=== PATIENT | female | born 1965 | race Caucasian/White ===

== ENCOUNTER 2021-05-02 14:11 | Inpatient (IN) | payer OTHER ==
[~2021-05-02] VITALS: Ht 157.5 cm; Wt 97.6 kg
[2021-05-02] MEDS ORDERED: NALOXONE HCL 1 MG/ML 2 ML SYRINGE IVP ONE (15:00)
[2021-05-02] MEDS ORDERED: CefTRIAXone SODIUM 2 GM in DEXTROSE 5%-WATER 50 ML IV ONE (15:00)
[2021-05-02] MEDS ORDERED: SODIUM CHLORIDE 0.9% 2,000 ML IV ONE (15:00)
[2021-05-02 15:10] LABS: ABG BASE EXCESS -12.6 mmol/L (-2.0-3.0); ABG CARBOXYHEMOGLOBIN 0.8 % (0.0-1.5); ABG HCO3 16.3 mmol/L (22.0-26.0); ABG METHEMOGLOBIN 0.1 % (0.0-1.5); ABG OXYGEN CONTENT 16.2 mL/dL (15.0-23.0); ABG OXYGEN SATURATION 94.9 % (95.0-98.0); ABG PH 7.419 (7.35-7.450); ABG TOTAL HEMOGLOBIN 12.2 G/dL (12.0-18.0); PO2, ARTERIAL BG 82.7 mmHg (66.0-74.0); SOURCE, BLOOD GAS ARTERIAL; TEMPERATURE, FAHRENHEIT, BG 99.1 FAHREN (96.0-98.6)
[2021-05-02 15:12] LABS: ABG PCO2 19 mmHg (35-45); O2 DEVICE,BLOOD GAS NC (ROOM AIR); SITE, BLOOD GAS RT FEMORAL
[2021-05-02 15:13] LABS: BASOPHILS % (AUTO) 0.2 % (0.0-2.0); EOSINOPHILS % (AUTO) 0 % (1.0-6.0); HEMATOCRIT 35.6 % (36-46); HEMOGLOBIN 11.6 g/dL (12.0-16.0); LYMPHOCYTES # (AUTO) 0.6 K/uL (1.0-4.8); MEAN CORPUSCULAR HEMOGLOBIN 29.3 pg (26.0-34.0); MEAN CORPUSCULAR HGB CONC 32.7 G/dL (31.0-37.0); MEAN CORPUSCULAR VOLUME 90 fL (80-100); MONOCYTES # (AUTO) 0.5 K/uL (0.1-1.0); MONOCYTES % (AUTO) 8.1 % (2.0-9.0); NEUTROPHILS # (AUTO) 5.3 K/uL (1.8-7.7); NEUTROPHILS % (AUTO) 82.7 % (40.0-70.0); RED BLOOD CELL COUNT(AUTO) 3.97 MIL/uL (4.00-5.20); RED CELL DISTRIBUTION WIDTH 21.4 % (11.5-14.5)
[2021-05-02 15:23] LABS: ANION GAP 16 mmol/L (8-16); CALCIUM, TOTAL 8.2 mg/dL (8.8-10.5); CARBON DIOXIDE 15 mmol/L (22-29); CHLORIDE 112 mmol/L (98-107); CREATININE 1.12 mg/dL (0.60-1.30); GLOMERULAR FILTR. RATE CALC 42 mL/min (>60); GLUCOSE,RANDOM 126 mg/dL (70-110); POTASSIUM 3.9 mmol/L (3.5-5.1); SODIUM SERUM 143 mmol/L (136-145); UREA NITROGEN, BLOOD 23 mg/dL (7-18)
[2021-05-02 15:43] LABS: B-TYPE NATRIURETIC PEPTIDE 221 pg/mL (0-100)
[2021-05-02 15:46] LABS: D-DIMER 4.4 mg/L FEU (0.00-0.50); INR 1.3 (0.9-1.1); PROTHROMBIN TIME 13.4 SEC (9.4-11.6)
[2021-05-02 15:49] LABS: ACETAMINOPHEN < 2 mcg/mL (10-30); ALANINE AMINOTRANSFERASE 48 U/L (12-78); ALBUMIN 2.4 g/dL (3.4-5.0); ALKALINE PHOSPHATASE 140 U/L (46-116); ASPARTATE AMINOTRANSFERASE 99 U/L (15-37); BILIRUBIN,TOTAL 3.5 mg/dL (0.1-1.0); CREATINE KINASE, TOTAL ONLY 619 U/L (26-192); LACTATE DEHYDROGENASE 329 U/L (81-234); LIPASE 160 U/L (73-393); TOTAL PROTEIN, SERUM 7.3 g/dL (6.4-8.2)
[2021-05-02 15:50] LABS: ACETONE,BLOOD NEGATIVE (NEGATIVE)
[2021-05-02] MEDS ORDERED: PANTOPRAZOLE SODIUM 40 MG/VIAL IVP ONE (16:00)
[2021-05-02] MEDS ORDERED: MIDAZOLAM HCL 2 MG/2 ML VIAL IVP ONE ×3 (16:00→23:15)
[2021-05-02 16:02] LABS: LACTIC ACID 9.6 mmol/L (0.4-2.0)
[2021-05-02] MEDS ORDERED: IOHEXOL 350 MG/ML 100 ML VIAL ONE (16:06)
[2021-05-02] MEDS ORDERED: SODIUM CHLORIDE 0.9% 100 ML ONE (16:06)
[2021-05-02 16:09] LABS: PLATELET COUNT (AUTO) 29 K/uL (150-450)
[2021-05-02 16:14] LABS: COVID AG,FIA SOURCE NASOPHARYNGEAL
[2021-05-02] MEDS ORDERED: LACTULOSE 20 GM/30 ML SOLUTION UDCUP NG ONE (16:15)
[2021-05-02] MEDS ORDERED: PANTOPRAZOLE SODIUM 80 MG in SODIUM CHLORIDE 0.9% 100 ML IV SCH (16:30)
[2021-05-02] MEDS ORDERED: IOHEXOL 350 MG/ML 75 ML VIAL ONE (16:31)
[2021-05-02] MEDS ORDERED: SODIUM CHLORIDE 0.9% 1,000 ML IV ONE ×2 (17:15→20:30)
[2021-05-02] MEDS ORDERED: ONDANSETRON HCL 4 MG/2 ML VIAL IVP PRN (17:15)
[2021-05-02 17:39] LABS: GLUCOSE, URINE (UA) NEGATIVE (NEGATIVE); KETONES,URINE 15 mg/dL (NEGATIVE); LEUKOCYTE ESTERASE ,URINE SMALL (NEGATIVE); NITRATE,URINE POSITIVE (NEGATIVE); PH,URINE 6.5 (5.0-8.0); PROTEIN,URINE SEE CONFIRM (NEGATIVE)
[2021-05-02 17:43] LABS: APPEARANCE,URINE CLEAR (CLEAR); BILIRUBIN,URINE PRELIM. POSITIVE (NEGATIVE); OCCULT BLOOD,URINE MODERATE (NEGATIVE)
[2021-05-02 17:44] LABS: AMPHET/METH SCREEN,URINE NEGATIVE (NEGATIVE); BACTERIA,URINE Few /HPF (None Seen); BARBITURATE SCREEN, URINE NEGATIVE (NEGATIVE); BENZODIAZEPINES SCREEN,URINE NEGATIVE (NEGATIVE); CANNABINOID SCREEN,URINE NEGATIVE (NEGATIVE); COCAINE SCREEN,URINE POSITIVE (NEGATIVE); METHADONE SCREEN, URINE NEGATIVE (NEGATIVE); OPIATE SCREEN,URINE POSITIVE (NEGATIVE); SULFOSALICYLIC ACID,URINE 2+ (Negative)
[2021-05-02 17:45] LABS: PHENCYCLIDINE SCREEN,URINE NEGATIVE (NEGATIVE); SQUAMOUS EPITHELIAL CELL,UR Moderate /LPF (None Seen)
[2021-05-02] MEDS ORDERED: RIFAXIMIN 550 MG TABLET NG ONE (21:00)
[2021-05-02] MEDS ORDERED: LACTULOSE 200 GM/300 ML RECTAL SOLUTION PR SCH (21:00)
[2021-05-02] MEDS ORDERED: OCTREOTIDE ACETATE 500 MCG in DEXTROSE 5%-WATER 97.5 ML IV SCH (21:00)
[2021-05-02] MEDS ORDERED: LORazepam 2 MG/ML VIAL ONE (21:10)
[2021-05-02] MEDS: OCTREOTIDE ACETATE 500 MCG in DEXTROSE 5%-WATER 97.5 ML IV SCH (21:10)
[2021-05-02] MEDS ORDERED: LORazepam 2 MG/ML VIAL IVP ONE (21:15)
[2021-05-02 21:43] LABS: BASOPHILS % (AUTO) 0.3 % (0.0-2.0); EOSINOPHILS % (AUTO) 0.1 % (1.0-6.0); HEMOGLOBIN 9.8 g/dL (12.0-16.0); LYMPHOCYTES # (AUTO) 0.6 K/uL (1.0-4.8); LYMPHOCYTES % (AUTO) 9.9 % (22.0-44.0); MEAN CORPUSCULAR HEMOGLOBIN 29.3 pg (26.0-34.0); MEAN CORPUSCULAR HGB CONC 32.7 G/dL (31.0-37.0); MEAN CORPUSCULAR VOLUME 90 fL (80-100); MONOCYTES # (AUTO) 0.3 K/uL (0.1-1.0); MONOCYTES % (AUTO) 5.6 % (2.0-9.0); NEUTROPHILS # (AUTO) 5.1 K/uL (1.8-7.7); NEUTROPHILS % (AUTO) 84.1 % (40.0-70.0); PLATELET COUNT (AUTO) 29 K/uL (150-450); RED BLOOD CELL COUNT(AUTO) 3.34 MIL/uL (4.00-5.20)
[2021-05-02] MEDS ORDERED: FentaNYL CIT 1000MCG/0.9% NACL 100 ML IV PRN (22:30)
[2021-05-02 22:31] LABS: ABG BASE EXCESS -13.3 mmol/L (-2.0-3.0); ABG CARBOXYHEMOGLOBIN 0.6 % (0.0-1.5); ABG HCO3 14.5 mmol/L (22.0-26.0); ABG METHEMOGLOBIN 0.3 % (0.0-1.5); ABG OXYGEN CONTENT 15.3 mL/dL (15.0-23.0); ABG OXYGEN SATURATION 96.1 % (95.0-98.0); ABG OXYHEMOGLOBIN 95.2 % (94.0-100.0); ABG PCO2 43 mmHg (35-45); ABG TOTAL HEMOGLOBIN 11.3 G/dL (12.0-18.0); PO2, ARTERIAL BG 111.6 mmHg (66.0-74.0); SOURCE, BLOOD GAS ARTERIAL; TEMPERATURE, FAHRENHEIT, BG 98.6 FAHREN (96.0-98.6)
[2021-05-02 22:32] LABS: ABG PH 7.169 (7.35-7.450); O2 DEVICE,BLOOD GAS VENTILATOR (ROOM AIR); PEEP,BG 5 cm H2O; SITE, BLOOD GAS RT RADIAL; VT, ABG 450 ml
[2021-05-02] MEDS: MIDAZOLAM HCL 100 MG in SODIUM CHLORIDE 0.9% 180 ML IV PRN (23:54)
[2021-05-03] VITALS (21 sets, daily range): BP systolic 80–137; BP diastolic 39–60
[2021-05-03] MEDS ORDERED: LACTULOSE 20 GM/30 ML SOLUTION UDCUP NG SCH
[2021-05-03] MEDS ORDERED: SODIUM CHLORIDE 0.9% 500 ML IV ONE (00:50)
[2021-05-03] MEDS: PANTOPRAZOLE SODIUM 80 MG in SODIUM CHLORIDE 0.9% 100 ML IV SCH ×2 (02:25→12:42)
[2021-05-03] MEDS ORDERED: SODIUM CHLORIDE 0.9% 250 ML IV ONE ×3 (03:32→15:37)
[2021-05-03] MEDS: OCTREOTIDE ACETATE 500 MCG in DEXTROSE 5%-WATER 97.5 ML IV SCH (07:00)
[2021-05-03 07:54] LABS: BASOPHILS % (AUTO) 0.4 % (0.0-2.0); EOSINOPHILS % (AUTO) 0.3 % (1.0-6.0); HEMATOCRIT 25.7 % (36-46); HEMOGLOBIN 8.4 g/dL (12.0-16.0); LYMPHOCYTES # (AUTO) 0.9 K/uL (1.0-4.8); MEAN CORPUSCULAR HEMOGLOBIN 29.5 pg (26.0-34.0); MEAN CORPUSCULAR HGB CONC 32.8 G/dL (31.0-37.0); MEAN CORPUSCULAR VOLUME 90 fL (80-100); MONOCYTES # (AUTO) 0.3 K/uL (0.1-1.0); MONOCYTES % (AUTO) 7.1 % (2.0-9.0); NEUTROPHILS # (AUTO) 3.1 K/uL (1.8-7.7); NEUTROPHILS % (AUTO) 71.2 % (40.0-70.0); PLATELET COUNT (AUTO) 33 K/uL (150-450); RED BLOOD CELL COUNT(AUTO) 2.86 MIL/uL (4.00-5.20); RED CELL DISTRIBUTION WIDTH 20.4 % (11.5-14.5)
[2021-05-03 08:32] LABS: CREATININE 1.04 mg/dL (0.60-1.30); POTASSIUM 4.2 mmol/L (3.5-5.1)
[2021-05-03] MEDS: PROPOFOL 1000 MG/ISO-OSM 100 ML IV PRN (10:00)
[2021-05-03] MEDS: ETHYL ALCOHOL 62% ANTISEPTIC NASAL INHALANT 0.6 ML AMPUL NASAL SCH ×2 (10:00→22:16)
[2021-05-03] MEDS ORDERED: ROCURONIUM BROMIDE 10 MG/ML 5 ML VIAL ONE ×2 (10:01)
[2021-05-03] MEDS ORDERED: ETOMIDATE 2 MG/ML 10 ML VIAL ONE (10:01)
[2021-05-03] MEDS: MIDAZOLAM HCL 100 MG in SODIUM CHLORIDE 0.9% 180 ML IV PRN ×2 (10:15→10:18)
[2021-05-03] MEDS: LACTULOSE 20 GM/30 ML SOLUTION UDCUP NG SCH ×2 (12:42→16:00)
[2021-05-03] MEDS: FentaNYL CIT 1000MCG/0.9% NACL 100 ML IV PRN ×2 (14:06→22:34)
[2021-05-03] MEDS: CefTRIAXone 1 GM/DEXTROSE 50 ML IV SCH (15:38)
[2021-05-03] MEDS: NOREPINEPHRINE 4 MG/D5%-WATER 250 ML IV PRN (15:53)
[2021-05-03 16:25] LABS: BASOPHILS % (AUTO) 0.3 % (0.0-2.0); HEMATOCRIT 23.4 % (36-46); HEMOGLOBIN 7.7 g/dL (12.0-16.0); LYMPHOCYTES # (AUTO) 1.1 K/uL (1.0-4.8); LYMPHOCYTES % (AUTO) 26.1 % (22.0-44.0); MEAN CORPUSCULAR HEMOGLOBIN 29.5 pg (26.0-34.0); MEAN CORPUSCULAR HGB CONC 32.8 G/dL (31.0-37.0); MEAN CORPUSCULAR VOLUME 90 fL (80-100); MONOCYTES # (AUTO) 0.3 K/uL (0.1-1.0); MONOCYTES % (AUTO) 7.3 % (2.0-9.0); NEUTROPHILS # (AUTO) 2.6 K/uL (1.8-7.7); NEUTROPHILS % (AUTO) 63.3 % (40.0-70.0); PLATELET COUNT (AUTO) 42 K/uL (150-450); RED CELL DISTRIBUTION WIDTH 21.1 % (11.5-14.5)
[2021-05-03] MEDS ORDERED: EPINEPHrine 1:10,000 [1 MG/10 ML] SYRINGE IVP ONE (17:00)
[2021-05-03] MEDS ORDERED: VANCOMYCIN HCL 1.25 GM in DEXTROSE 5%-WATER 250 ML IV ONE (18:00)
[2021-05-03] MEDS ORDERED: VANCOMYCIN HCL 1 GM/D5% WATER 200 ML IV ONE (18:00)
[2021-05-03 19:42] LABS: ABG CARBOXYHEMOGLOBIN 0.5 % (0.0-1.5); ABG METHEMOGLOBIN 0.3 % (0.0-1.5); ABG OXYGEN CONTENT 12.4 mL/dL (15.0-23.0); ABG OXYGEN SATURATION 98.1 % (95.0-98.0); ABG OXYHEMOGLOBIN 97.3 % (94.0-100.0); ABG PCO2 28 mmHg (35-45); ABG PH 7.455 (7.35-7.450); ABG TOTAL HEMOGLOBIN 8.9 G/dL (12.0-18.0); PO2, ARTERIAL BG 110.2 mmHg (84.0-92.0); SOURCE, BLOOD GAS ARTERIAL; TEMPERATURE, FAHRENHEIT, BG 98.6 FAHREN (96.0-98.6)
[2021-05-03 19:43] LABS: O2 DEVICE,BLOOD GAS VENTILATOR (ROOM AIR); PEEP,BG 5 cm H2O; SITE, BLOOD GAS ARTERIAL LINE; VT, ABG 450 ml
[2021-05-04] VITALS (9 sets, daily range): BP systolic 97–138; BP diastolic 42–73
[2021-05-04] MEDS: MIDAZOLAM HCL 100 MG in SODIUM CHLORIDE 0.9% 180 ML IV PRN (00:58)
[2021-05-04] MEDS: LACTULOSE 20 GM/30 ML SOLUTION UDCUP NG SCH ×3 (02:14→16:45)
[2021-05-04 06:36] LABS: CALCIUM, TOTAL 7.5 mg/dL (8.8-10.5); CREATININE 1.42 mg/dL (0.60-1.30); POTASSIUM 3.5 mmol/L (3.5-5.1)
[2021-05-04] MEDS: FentaNYL CIT 1000MCG/0.9% NACL 100 ML IV PRN ×2 (06:51→15:31)
[2021-05-04] MEDS: NOREPINEPHRINE 4 MG/D5%-WATER 250 ML IV PRN (06:53)
[2021-05-04] MEDS ORDERED: VANCOMYCIN HCL 1 GM in DEXTROSE 5%-WATER 250 ML IV SCH (08:00)
[2021-05-04 08:16] LABS: BASOPHILS % (AUTO) 0.4 % (0.0-2.0); HEMATOCRIT 27.2 % (36-46); HEMOGLOBIN 8.9 g/dL (12.0-16.0); LYMPHOCYTES # (AUTO) 2.4 K/uL (1.0-4.8); LYMPHOCYTES % (AUTO) 28.4 % (22.0-44.0); MEAN CORPUSCULAR HGB CONC 32.5 G/dL (31.0-37.0); MEAN CORPUSCULAR VOLUME 92 fL (80-100); MONOCYTES # (AUTO) 0.5 K/uL (0.1-1.0); MONOCYTES % (AUTO) 5.6 % (2.0-9.0); NEUTROPHILS # (AUTO) 5.1 K/uL (1.8-7.7); NEUTROPHILS % (AUTO) 60.6 % (40.0-70.0); PLATELET COUNT (AUTO) 126 K/uL (150-450); RED BLOOD CELL COUNT(AUTO) 2.95 MIL/uL (4.00-5.20); RED CELL DISTRIBUTION WIDTH 21.6 % (11.5-14.5)
[2021-05-04] MEDS: ETHYL ALCOHOL 62% ANTISEPTIC NASAL INHALANT 0.6 ML AMPUL NASAL SCH ×2 (08:55→21:34)
[2021-05-04] MEDS: VANCOMYCIN HCL 750 MG in DEXTROSE 5%-WATER 250 ML IV SCH ×2 (08:55→21:35)
[2021-05-04] MEDS ORDERED: PANTOPRAZOLE SODIUM 40 MG/VIAL IVP SCH (09:00)
[2021-05-04] MEDS: DEXMEDETOMIDINE HCL 400 MCG in SODIUM CHLORIDE 0.9% 96 ML IV PRN (16:46)
[2021-05-04] MEDS: CefTRIAXone 1 GM/DEXTROSE 50 ML IV SCH (17:27)
[2021-05-05] VITALS (9 sets, daily range): BP systolic 91–113; BP diastolic 43–56
[2021-05-05] MEDS: LACTULOSE 20 GM/30 ML SOLUTION UDCUP NG SCH ×4 (00:37→23:35)
[2021-05-05] MEDS: NOREPINEPHRINE 4 MG/D5%-WATER 250 ML IV PRN ×2 (03:08→23:35)
[2021-05-05] MEDS: FentaNYL CIT 1000MCG/0.9% NACL 100 ML IV PRN (04:29)
[2021-05-05 05:22] LABS: CALCIUM, TOTAL 7.6 mg/dL (8.8-10.5); CREATININE 1.34 mg/dL (0.60-1.30); POTASSIUM 3.2 mmol/L (3.5-5.1); VANCOMYCIN,RANDOM 15.1 mcg/mL (25.0-50.0)
[2021-05-05] MEDS: VANCOMYCIN HCL 750 MG in DEXTROSE 5%-WATER 250 ML IV SCH (09:08)
[2021-05-05] MEDS ORDERED: POTASSIUM CHL 10 MEQ/WATER 50 ML IV SCH (09:15)
[2021-05-05] MEDS ORDERED: POTASSIUM CHLORIDE 20 MEQ ER TABLET PO PRN (09:30)
[2021-05-05] MEDS: PANTOPRAZOLE SODIUM 40 MG/VIAL IVP SCH ×2 (09:56→21:08)
[2021-05-05] MEDS: ETHYL ALCOHOL 62% ANTISEPTIC NASAL INHALANT 0.6 ML AMPUL NASAL SCH ×2 (09:56→21:09)
[2021-05-05] MEDS: POTASSIUM CHL 10 MEQ/WATER 50 ML IV PRN ×6 (11:27→17:55)
[2021-05-05] MEDS: DEXMEDETOMIDINE HCL 400 MCG in SODIUM CHLORIDE 0.9% 96 ML IV PRN (12:09)
[2021-05-05] MEDS: CefTRIAXone 1 GM/DEXTROSE 50 ML IV SCH (15:44)
[2021-05-05] MEDS: VANCOMYCIN HCL 1 GM in DEXTROSE 5%-WATER 250 ML IV SCH (19:46)
[2021-05-05] MEDS ORDERED: VANCOMYCIN HCL 1 GM/D5% WATER 200 ML IV SCH (20:00)
[2021-05-06] VITALS (12 sets, daily range): BP systolic 102–122; BP diastolic 44–66
[2021-05-06] MEDS: DEXTROSE 5%-0.45% SODIUM CHL 1,000 ML IV SCH ×2 (04:46→17:09)
[2021-05-06] MEDS: ACETAMINOPHEN 325 MG TABLET PO PRN (04:47)
[2021-05-06 05:00] LABS: BASOPHILS % (AUTO) 0.3 % (0.0-2.0); LYMPHOCYTES # (AUTO) 1.7 K/uL (1.0-4.8); MEAN CORPUSCULAR HEMOGLOBIN 30.1 pg (26.0-34.0); MEAN CORPUSCULAR HGB CONC 32.3 G/dL (31.0-37.0); MEAN CORPUSCULAR VOLUME 93 fL (80-100); MONOCYTES # (AUTO) 0.8 K/uL (0.1-1.0); MONOCYTES % (AUTO) 8.8 % (2.0-9.0); NEUTROPHILS # (AUTO) 5.9 K/uL (1.8-7.7); NEUTROPHILS % (AUTO) 68.9 % (40.0-70.0); PLATELET COUNT (AUTO) 73 K/uL (150-450); RED BLOOD CELL COUNT(AUTO) 2.99 MIL/uL (4.00-5.20); RED CELL DISTRIBUTION WIDTH 21.4 % (11.5-14.5)
[2021-05-06 05:10] LABS: ALBUMIN 1.8 g/dL (3.4-5.0); BILIRUBIN,TOTAL 2.1 mg/dL (0.1-1.0); CALCIUM, TOTAL 7.5 mg/dL (8.8-10.5); CREATININE 1.36 mg/dL (0.60-1.30); POTASSIUM 3.5 mmol/L (3.5-5.1); TOTAL PROTEIN, SERUM 5.7 g/dL (6.4-8.2)
[2021-05-06] MEDS: VANCOMYCIN HCL 1 GM in DEXTROSE 5%-WATER 250 ML IV SCH ×2 (10:56→20:25)
[2021-05-06] MEDS: PANTOPRAZOLE SODIUM 40 MG/VIAL IVP SCH ×2 (10:57→20:25)
[2021-05-06] MEDS: LACTULOSE 20 GM/30 ML SOLUTION UDCUP NG SCH ×3 (10:57→23:43)
[2021-05-06] MEDS: ETHYL ALCOHOL 62% ANTISEPTIC NASAL INHALANT 0.6 ML AMPUL NASAL SCH ×2 (10:58→20:25)
[2021-05-06] MEDS: DEXMEDETOMIDINE HCL 400 MCG in SODIUM CHLORIDE 0.9% 96 ML IV PRN (12:43)
[2021-05-06] MEDS: CefTRIAXone 1 GM/DEXTROSE 50 ML IV SCH (14:47)
[2021-05-06] MEDS: POTASSIUM CHL 10 MEQ/WATER 50 ML IV PRN ×4 (15:32→23:44)
[2021-05-06 21:05] LABS: CALCIUM, TOTAL 7.3 mg/dL (8.8-10.5); CREATININE 1.21 mg/dL (0.60-1.30); POTASSIUM 3.4 mmol/L (3.5-5.1)
[2021-05-07] VITALS (9 sets, daily range): BP systolic 79–162; BP diastolic 38–69
[2021-05-07] MEDS: POTASSIUM CHL 10 MEQ/WATER 50 ML IV PRN (00:50)
[2021-05-07 05:50] LABS: BASOPHILS % (AUTO) 0.4 % (0.0-2.0); EOSINOPHILS % (AUTO) 1.6 % (1.0-6.0); HEMATOCRIT 25.6 % (36-46); HEMOGLOBIN 8.1 g/dL (12.0-16.0); LYMPHOCYTES # (AUTO) 1.2 K/uL (1.0-4.8); LYMPHOCYTES % (AUTO) 33.3 % (22.0-44.0); MEAN CORPUSCULAR HEMOGLOBIN 29.6 pg (26.0-34.0); MEAN CORPUSCULAR HGB CONC 31.5 G/dL (31.0-37.0); MEAN CORPUSCULAR VOLUME 94 fL (80-100); MONOCYTES # (AUTO) 0.4 K/uL (0.1-1.0); MONOCYTES % (AUTO) 11.8 % (2.0-9.0); NEUTROPHILS # (AUTO) 1.9 K/uL (1.8-7.7); NEUTROPHILS % (AUTO) 52.9 % (40.0-70.0); PLATELET COUNT (AUTO) 47 K/uL (150-450); RED BLOOD CELL COUNT(AUTO) 2.73 MIL/uL (4.00-5.20); RED CELL DISTRIBUTION WIDTH 22.4 % (11.5-14.5)
[2021-05-07 06:18] LABS: CALCIUM, TOTAL 7.4 mg/dL (8.8-10.5); CREATININE 1.19 mg/dL (0.60-1.30); PHOSPHORUS 3.2 mg/dL (2.5-4.9); POTASSIUM 3.7 mmol/L (3.5-5.1)
[2021-05-07] MEDS: LACTULOSE 20 GM/30 ML SOLUTION UDCUP NG SCH ×2 (08:00→15:53)
[2021-05-07 09:05] LABS: ABG BASE EXCESS -7.7 mmol/L (-2.0-3.0); ABG CARBOXYHEMOGLOBIN 0.8 % (0.0-1.5); ABG METHEMOGLOBIN 0.3 % (0.0-1.5); ABG OXYGEN SATURATION 98.3 % (95.0-98.0); ABG OXYHEMOGLOBIN 97.2 % (94.0-100.0); ABG PCO2 26 mmHg (35-45); ABG PH 7.427 (7.35-7.450); ABG TOTAL HEMOGLOBIN 8.6 G/dL (12.0-18.0); PO2, ARTERIAL BG 115.4 mmHg (84.0-92.0); SOURCE, BLOOD GAS ARTERIAL
[2021-05-07 09:06] LABS: O2 DEVICE,BLOOD GAS VENTILATOR (ROOM AIR); SITE, BLOOD GAS ARTERIAL LINE; VT, ABG 450 ml
[2021-05-07 09:07] LABS: PEEP,BG 5 cm H2O; SPONTANEOUS VT, BG 455 ml
[2021-05-07] MEDS: DEXTROSE 5%-0.45% SODIUM CHL 1,000 ML IV SCH ×2 (09:30→20:15)
[2021-05-07] MEDS: VANCOMYCIN HCL 1 GM in DEXTROSE 5%-WATER 250 ML IV SCH ×2 (09:31→20:16)
[2021-05-07] MEDS: PANTOPRAZOLE SODIUM 40 MG/VIAL IVP SCH ×2 (09:32→20:17)
[2021-05-07] MEDS: ETHYL ALCOHOL 62% ANTISEPTIC NASAL INHALANT 0.6 ML AMPUL NASAL SCH ×2 (09:32→20:16)
[2021-05-07] MEDS: FentaNYL CIT 1000MCG/0.9% NACL 100 ML IV PRN ×2 (09:33→22:32)
[2021-05-07] MEDS: CefTRIAXone 1 GM/DEXTROSE 50 ML IV SCH (15:52)
[2021-05-07] MEDS: NOREPINEPHRINE 4 MG/D5%-WATER 250 ML IV PRN (16:31)
[2021-05-07] MEDS ORDERED: MAGNESIUM SULFATE 2 GM, MVI, ADULT NO.1 WITH VIT K 10 ML, THIAMINE 100 MG, FOLIC ACID 1... IV ONE ×5 (17:30)
[2021-05-08] VITALS (12 sets, daily range): BP systolic 89–122; BP diastolic 47–66
[2021-05-08] MEDS: DEXMEDETOMIDINE HCL 400 MCG in SODIUM CHLORIDE 0.9% 96 ML IV PRN (05:16)
[2021-05-08 06:23] LABS: CALCIUM, TOTAL 7.3 mg/dL (8.8-10.5); CREATININE 0.97 mg/dL (0.60-1.30); POTASSIUM 3.1 mmol/L (3.5-5.1)
[2021-05-08] MEDS: FentaNYL CIT 1000MCG/0.9% NACL 100 ML IV PRN ×2 (06:44→15:55)
[2021-05-08] MEDS: POTASSIUM CHLORIDE 10% 40 MEQ/30 ML LIQUID UDCUP NG PRN ×2 (08:27→15:55)
[2021-05-08] MEDS: PANTOPRAZOLE SODIUM 40 MG/VIAL IVP SCH ×2 (08:27→21:50)
[2021-05-08] MEDS: LACTULOSE 20 GM/30 ML SOLUTION UDCUP NG SCH ×3 (08:27→15:55)
[2021-05-08] MEDS: ETHYL ALCOHOL 62% ANTISEPTIC NASAL INHALANT 0.6 ML AMPUL NASAL SCH ×2 (08:28→21:51)
[2021-05-08] MEDS: VANCOMYCIN HCL 1 GM in DEXTROSE 5%-WATER 250 ML IV SCH ×2 (08:28→21:51)
[2021-05-08] MEDS: DEXTROSE 5%-0.45% SODIUM CHL 1,000 ML IV SCH ×2 (10:06→21:53)
[2021-05-08] MEDS: PROPOFOL 1000 MG/ISO-OSM 100 ML IV PRN (11:38)
[2021-05-08] MEDS: NOREPINEPHRINE 4 MG/D5%-WATER 250 ML IV PRN ×2 (11:40→21:52)
[2021-05-08] MEDS: CefTRIAXone 1 GM/DEXTROSE 50 ML IV SCH (16:59)
[2021-05-08] MEDS: MIDAZOLAM HCL 100 MG in SODIUM CHLORIDE 0.9% 180 ML IV PRN (19:56)
[2021-05-09] VITALS (12 sets, daily range): BP systolic 94–130; BP diastolic 49–86
[2021-05-09] MEDS: LACTULOSE 20 GM/30 ML SOLUTION UDCUP NG SCH ×3 (00:31→16:21)
[2021-05-09] MEDS: FentaNYL CIT 1000MCG/0.9% NACL 100 ML IV PRN ×3 (01:13→22:43)
[2021-05-09 05:39] LABS: CALCIUM, TOTAL 7.4 mg/dL (8.8-10.5); CREATININE 1.1 mg/dL (0.60-1.30); POTASSIUM 3.6 mmol/L (3.5-5.1)
[2021-05-09] MEDS: PANTOPRAZOLE SODIUM 40 MG/VIAL IVP SCH ×2 (08:02→20:54)
[2021-05-09] MEDS: ETHYL ALCOHOL 62% ANTISEPTIC NASAL INHALANT 0.6 ML AMPUL NASAL SCH ×2 (08:02→20:54)
[2021-05-09] MEDS: VANCOMYCIN HCL 1 GM in DEXTROSE 5%-WATER 250 ML IV SCH ×2 (08:14→20:52)
[2021-05-09] MEDS: MIDAZOLAM HCL 100 MG in SODIUM CHLORIDE 0.9% 180 ML IV PRN (11:11)
[2021-05-09] MEDS: NOREPINEPHRINE 4 MG/D5%-WATER 250 ML IV PRN (11:12)
[2021-05-09] MEDS: DEXMEDETOMIDINE HCL 400 MCG in SODIUM CHLORIDE 0.9% 96 ML IV PRN (11:13)
[2021-05-09] MEDS: DEXTROSE 5%-0.45% SODIUM CHL 1,000 ML IV SCH (11:15)
[2021-05-09] MEDS: CefTRIAXone 1 GM/DEXTROSE 50 ML IV SCH (16:21)
[2021-05-10] VITALS (15 sets, daily range): BP systolic 94–129; BP diastolic 47–69
[2021-05-10] MEDS: LACTULOSE 20 GM/30 ML SOLUTION UDCUP NG SCH ×2 (01:35→07:50)
[2021-05-10] MEDS: DEXTROSE 5%-0.45% SODIUM CHL 1,000 ML IV SCH ×2 (01:38→15:24)
[2021-05-10] MEDS: NOREPINEPHRINE 4 MG/D5%-WATER 250 ML IV PRN (05:32)
[2021-05-10 06:39] LABS: CALCIUM, TOTAL 7.6 mg/dL (8.8-10.5); CREATININE 1.21 mg/dL (0.60-1.30); POTASSIUM 3.4 mmol/L (3.5-5.1); VANCOMYCIN,RANDOM 18.5 mcg/mL (25.0-50.0)
[2021-05-10] MEDS: ACETAMINOPHEN 325 MG TABLET PO PRN (07:50)
[2021-05-10] MEDS: PANTOPRAZOLE SODIUM 40 MG/VIAL IVP SCH ×2 (07:50→20:08)
[2021-05-10] MEDS: FentaNYL CIT 1000MCG/0.9% NACL 100 ML IV PRN (07:50)
[2021-05-10] MEDS: ETHYL ALCOHOL 62% ANTISEPTIC NASAL INHALANT 0.6 ML AMPUL NASAL SCH ×2 (07:51→20:08)
[2021-05-10] MEDS: VANCOMYCIN HCL 1 GM in DEXTROSE 5%-WATER 250 ML IV SCH (07:51)
[2021-05-10] MEDS: MIDAZOLAM HCL 100 MG in SODIUM CHLORIDE 0.9% 180 ML IV PRN (08:23)
[2021-05-10 12:26] LABS: ABG A-A DIFF O2 168.7 mmHg (10-20.0); ABG BASE EXCESS -9.3 mmol/L (-2.0-3.0); ABG CARBOXYHEMOGLOBIN 0.7 % (0.0-1.5); ABG HCO3 17.7 mmol/L (22.0-26.0); ABG METHEMOGLOBIN 0.3 % (0.0-1.5); ABG OXYGEN CONTENT 12.1 mL/dL (15.0-23.0); ABG OXYGEN SATURATION 98.2 % (95.0-98.0); ABG OXYHEMOGLOBIN 97.2 % (94.0-100.0); ABG PCO2 28 mmHg (35-45); ABG PH 7.374 (7.35-7.450); ABG TOTAL HEMOGLOBIN 8.7 G/dL (12.0-18.0); O2 DEVICE,BLOOD GAS VENTILATOR (ROOM AIR); PO2, ARTERIAL BG 119.6 mmHg (84.0-92.0); SITE, BLOOD GAS ARTERIAL LINE; SOURCE, BLOOD GAS ARTERIAL; TEMPERATURE, FAHRENHEIT, BG 99.8 FAHREN (96.0-98.6); VENT MODE, BG CPAP (ROOM AIR)
[2021-05-10 12:27] LABS: CPAP, BG 5 cm H2O; PRESSURE SUPPORT, BG 8 cm H2O; SPONTANEOUS VT, BG 817 ml
[2021-05-10] MEDS ORDERED: LACTULOSE 20 GM/30 ML SOLUTION UDCUP NG SCH (15:00)
[2021-05-10] MEDS: CefTRIAXone 1 GM/DEXTROSE 50 ML IV SCH (15:24)
[2021-05-10 17:19] LABS: C.DIFF GDH ANTIGEN, Stool Negative (Negative); C.DIFF TOXINS A&B, Stool Negative (Negative)
[2021-05-10] MEDS: VANCOMYCIN HCL 1.25 GM in DEXTROSE 5%-WATER 250 ML IV SCH (20:05)
[2021-05-11] VITALS (13 sets, daily range): BP systolic 92–111; BP diastolic 41–83
[2021-05-11] MEDS: NOREPINEPHRINE 4 MG/D5%-WATER 250 ML IV PRN ×2 (02:45→22:10)
[2021-05-11] MEDS: DEXTROSE 5%-0.45% SODIUM CHL 1,000 ML IV SCH ×2 (03:49→17:31)
[2021-05-11] MEDS: DEXMEDETOMIDINE HCL 400 MCG in SODIUM CHLORIDE 0.9% 96 ML IV PRN (04:52)
[2021-05-11] MEDS: ETHYL ALCOHOL 62% ANTISEPTIC NASAL INHALANT 0.6 ML AMPUL NASAL SCH ×2 (08:38→20:37)
[2021-05-11] MEDS: VANCOMYCIN HCL 1.25 GM in DEXTROSE 5%-WATER 250 ML IV SCH ×2 (08:38→20:37)
[2021-05-11] MEDS: PANTOPRAZOLE SODIUM 40 MG/VIAL IVP SCH ×2 (08:38→20:37)
[2021-05-11] MEDS ORDERED: LACTOBACILLUS ACIDOPHILUS/BULGARICUS GRANULES PACKET PO ONE (09:00)
[2021-05-11] MEDS: PROPOFOL 1000 MG/ISO-OSM 100 ML IV PRN ×2 (11:27→23:55)
[2021-05-11 11:31] LABS: CALCIUM, TOTAL 7.5 mg/dL (8.8-10.5); CREATININE 1.02 mg/dL (0.60-1.30); POTASSIUM 3.4 mmol/L (3.5-5.1)
[2021-05-11] MEDS: FentaNYL CIT 1000MCG/0.9% NACL 100 ML IV PRN ×2 (11:48→19:22)
[2021-05-11] MEDS: POTASSIUM CHLORIDE 10% 40 MEQ/30 ML LIQUID UDCUP NG PRN (12:20)
[2021-05-11] MEDS: CefTRIAXone 1 GM/DEXTROSE 50 ML IV SCH (15:04)
[2021-05-12] VITALS (14 sets, daily range): BP systolic 89–121; BP diastolic 37–70
[2021-05-12] MEDS: FentaNYL CIT 1000MCG/0.9% NACL 100 ML IV PRN ×2 (04:34→21:08)
[2021-05-12] MEDS: PROPOFOL 1000 MG/ISO-OSM 100 ML IV PRN ×3 (06:35→17:43)
[2021-05-12 06:36] LABS: CALCIUM, TOTAL 7.4 mg/dL (8.8-10.5); CREATININE 1.01 mg/dL (0.60-1.30); POTASSIUM 3.6 mmol/L (3.5-5.1)
[2021-05-12] MEDS: DEXTROSE 5%-0.45% SODIUM CHL 1,000 ML IV SCH (07:13)
[2021-05-12] MEDS: ETHYL ALCOHOL 62% ANTISEPTIC NASAL INHALANT 0.6 ML AMPUL NASAL SCH ×2 (08:51→20:06)
[2021-05-12] MEDS: PANTOPRAZOLE SODIUM 40 MG/VIAL IVP SCH ×2 (08:51→20:06)
[2021-05-12] MEDS: NOREPINEPHRINE 4 MG/D5%-WATER 250 ML IV PRN (11:18)
[2021-05-12] MEDS: CefTRIAXone 1 GM/DEXTROSE 50 ML IV SCH (15:41)
[2021-05-12] MEDS: VANCOMYCIN HCL 1 GM/D5% WATER 200 ML IV SCH (17:42)
[2021-05-13] VITALS (11 sets, daily range): BP systolic 96–115; BP diastolic 40–78
[2021-05-13] MEDS: PROPOFOL 1000 MG/ISO-OSM 100 ML IV PRN ×4 (01:19→23:15)
[2021-05-13] MEDS: NOREPINEPHRINE 4 MG/D5%-WATER 250 ML IV PRN ×2 (04:49→16:44)
[2021-05-13 06:48] LABS: CALCIUM, TOTAL 7.5 mg/dL (8.8-10.5); CREATININE 0.97 mg/dL (0.60-1.30); POTASSIUM 3.6 mmol/L (3.5-5.1)
[2021-05-13] MEDS: FentaNYL CIT 1000MCG/0.9% NACL 100 ML IV PRN (07:19)
[2021-05-13] MEDS ORDERED: SODIUM CHLORIDE 0.9% 500 ML IV ONE ×2 (08:22→12:42)
[2021-05-13] MEDS: ETHYL ALCOHOL 62% ANTISEPTIC NASAL INHALANT 0.6 ML AMPUL NASAL SCH ×2 (08:44→21:33)
[2021-05-13] MEDS: VANCOMYCIN HCL 1 GM/D5% WATER 200 ML IV SCH ×2 (08:44→20:42)
[2021-05-13] MEDS: PANTOPRAZOLE SODIUM 40 MG/VIAL IVP SCH ×2 (08:44→21:33)
[2021-05-13] MEDS: CefTRIAXone 1 GM/DEXTROSE 50 ML IV SCH (14:59)
[2021-05-13 18:25] LABS: THYROID STIMULATING HORMONE 132.5 uIU/mL (0.36-3.74)
[2021-05-14] VITALS (18 sets, daily range): BP systolic 95–156; BP diastolic 40–68
[2021-05-14] MEDS: PROPOFOL 1000 MG/ISO-OSM 100 ML IV PRN ×3 (03:30→18:47)
[2021-05-14] MEDS: NOREPINEPHRINE 4 MG/D5%-WATER 250 ML IV PRN (04:14)
[2021-05-14 05:58] LABS: ANION GAP 11 mmol/L (8-16); CARBON DIOXIDE 15 mmol/L (22-29); CHLORIDE 112 mmol/L (98-107); CREATININE 0.82 mg/dL (0.60-1.30); GLOMERULAR FILTR. RATE CALC > 60 mL/min (>60); GLUCOSE,RANDOM 113 mg/dL (70-110); POTASSIUM 3.8 mmol/L (3.5-5.1); SODIUM SERUM 138 mmol/L (136-145); UREA NITROGEN, BLOOD 12 mg/dL (7-18); VANCOMYCIN,RANDOM 16.3 mcg/mL (25.0-50.0)
[2021-05-14] MEDS: VANCOMYCIN HCL 1 GM/D5% WATER 200 ML IV SCH (08:56)
[2021-05-14] MEDS: ETHYL ALCOHOL 62% ANTISEPTIC NASAL INHALANT 0.6 ML AMPUL NASAL SCH ×2 (08:57→20:35)
[2021-05-14] MEDS: PANTOPRAZOLE SODIUM 40 MG/VIAL IVP SCH ×2 (08:57→20:35)
[2021-05-14] MEDS ORDERED: SODIUM CHLORIDE 0.9% 500 ML IV ONE (09:36)
[2021-05-14] MEDS: FentaNYL CIT 1000MCG/0.9% NACL 100 ML IV PRN ×2 (12:18→18:50)
[2021-05-14] MEDS: CefTRIAXone 1 GM/DEXTROSE 50 ML IV SCH (14:51)
[2021-05-14] MEDS: VANCOMYCIN HCL 750 MG in DEXTROSE 5%-WATER 250 ML IV SCH ×2 (14:52→23:51)
[2021-05-14] MEDS: DEXMEDETOMIDINE HCL 400 MCG in SODIUM CHLORIDE 0.9% 96 ML IV PRN (18:48)
[2021-05-15] VITALS (7 sets, daily range): BP systolic 91–125; BP diastolic 42–63
[2021-05-15] MEDS: FentaNYL CIT 1000MCG/0.9% NACL 100 ML IV PRN (03:42)
[2021-05-15 05:23] LABS: ANION GAP 8 mmol/L (8-16); CALCIUM, TOTAL 7.4 mg/dL (8.8-10.5); CARBON DIOXIDE 17 mmol/L (22-29); CHLORIDE 112 mmol/L (98-107); CREATININE 0.93 mg/dL (0.60-1.30); GLOMERULAR FILTR. RATE CALC > 60 mL/min (>60); GLUCOSE,RANDOM 107 mg/dL (70-110); POTASSIUM 3.6 mmol/L (3.5-5.1); SODIUM SERUM 137 mmol/L (136-145); UREA NITROGEN, BLOOD 19 mg/dL (7-18)
[2021-05-15] MEDS: DEXMEDETOMIDINE HCL 400 MCG in SODIUM CHLORIDE 0.9% 96 ML IV PRN ×3 (06:42→23:10)
[2021-05-15] MEDS: PANTOPRAZOLE SODIUM 40 MG/VIAL IVP SCH ×2 (07:56→21:23)
[2021-05-15] MEDS: VANCOMYCIN HCL 750 MG in DEXTROSE 5%-WATER 250 ML IV SCH ×3 (07:56→23:15)
[2021-05-15] MEDS: ETHYL ALCOHOL 62% ANTISEPTIC NASAL INHALANT 0.6 ML AMPUL NASAL SCH ×2 (07:58→21:23)
[2021-05-15] MEDS ORDERED: SODIUM CHLORIDE 0.9% 250 ML IV ONE ×2 (09:07→23:14)
[2021-05-15 10:28] LABS: ABG A-A DIFF O2 186.1 mmHg (10-20.0); ABG BASE EXCESS -9.3 mmol/L (-2.0-3.0); ABG CARBOXYHEMOGLOBIN 0.4 % (0.0-1.5); ABG HCO3 17.6 mmol/L (22.0-26.0); ABG METHEMOGLOBIN 0.3 % (0.0-1.5); ABG OXYGEN CONTENT 10.2 mL/dL (15.0-23.0); ABG OXYHEMOGLOBIN 92.3 % (94.0-100.0); ABG PCO2 24 mmHg (35-45); ABG PH 7.415 (7.35-7.450); ABG TOTAL HEMOGLOBIN 7.8 G/dL (12.0-18.0); CPAP, BG 0 cm H2O; O2 DEVICE,BLOOD GAS VENTILATOR (ROOM AIR); PRESSURE SUPPORT, BG 8 cm H2O; SITE, BLOOD GAS ARTERIAL LINE; SOURCE, BLOOD GAS ARTERIAL; SPONTANEOUS VT, BG 450 ml; TEMPERATURE, FAHRENHEIT, BG 98.6 FAHREN (96.0-98.6); VENT MODE, BG CPAP (ROOM AIR)
[2021-05-15] MEDS: LORazepam 2 MG/ML VIAL IVP PRN (14:12)
[2021-05-15] MEDS: CefTRIAXone 1 GM/DEXTROSE 50 ML IV SCH (15:59)
[2021-05-15] MEDS ORDERED: SCOPOLAMINE HYDROBROMIDE 1 MG/72 HOUR PATCH TD SCH (18:15)
[2021-05-15] MEDS ORDERED: MORPHINE SULFATE 2 MG/ML SYRINGE IVP PRN (18:15)
[2021-05-15] MEDS: NOREPINEPHRINE 4 MG/D5%-WATER 250 ML IV PRN (20:16)
[2021-05-16] VITALS: BP 108/51
[2021-05-16 04:00] VITALS: BP 100/46
[2021-05-16 06:14] LABS: BASOPHILS % (AUTO) 0.7 % (0.0-2.0); EOSINOPHILS % (AUTO) 2.5 % (1.0-6.0); HEMATOCRIT 25.9 % (36-46); HEMOGLOBIN 8.5 g/dL (12.0-16.0); LYMPHOCYTES # (AUTO) 1.4 K/uL (1.0-4.8); LYMPHOCYTES % (AUTO) 16.1 % (22.0-44.0); MEAN CORPUSCULAR HEMOGLOBIN 29.9 pg (26.0-34.0); MEAN CORPUSCULAR HGB CONC 32.7 G/dL (31.0-37.0); MEAN CORPUSCULAR VOLUME 92 fL (80-100); MONOCYTES # (AUTO) 0.5 K/uL (0.1-1.0); MONOCYTES % (AUTO) 5.9 % (2.0-9.0); NEUTROPHILS # (AUTO) 6.6 K/uL (1.8-7.7); NEUTROPHILS % (AUTO) 74.8 % (40.0-70.0); PLATELET COUNT (AUTO) 93 K/uL (150-450); RED BLOOD CELL COUNT(AUTO) 2.83 MIL/uL (4.00-5.20); RED CELL DISTRIBUTION WIDTH 22.4 % (11.5-14.5)
[2021-05-16] MEDS ORDERED: LEVOTHYROXINE SODIUM 150 MCG TABLET PO SCH (06:30)
[2021-05-16 06:33] LABS: ANION GAP 10 mmol/L (8-16); CALCIUM, TOTAL 7.8 mg/dL (8.8-10.5); CARBON DIOXIDE 18 mmol/L (22-29); CHLORIDE 111 mmol/L (98-107); CREATININE 0.85 mg/dL (0.60-1.30); GLOMERULAR FILTR. RATE CALC > 60 mL/min (>60); GLUCOSE,RANDOM 115 mg/dL (70-110); POTASSIUM 3.4 mmol/L (3.5-5.1); SODIUM SERUM 139 mmol/L (136-145); UREA NITROGEN, BLOOD 19 mg/dL (7-18)
[2021-05-16] MEDS: VANCOMYCIN HCL 750 MG in DEXTROSE 5%-WATER 250 ML IV SCH (07:57)
[2021-05-16] MEDS: ETHYL ALCOHOL 62% ANTISEPTIC NASAL INHALANT 0.6 ML AMPUL NASAL SCH (07:59)
[2021-05-16 08:00] VITALS: BP 90/45
[2021-05-16] MEDS: PANTOPRAZOLE SODIUM 40 MG/VIAL IVP SCH (08:00)
[2021-05-16] MEDS ORDERED: ALBUTEROL SULFATE HFA 90 MCG/PUFF 8 GM INHALER IH PRN (09:15)
[2021-05-16] MEDS ORDERED: IPRATROPIUM BROMIDE 0.5 MG/2.5 ML NEB SOLUTION NEB PRN ×2 (09:15)
[2021-05-16] MEDS ORDERED: ALBUTEROL SULFATE 2.5 MG/0.5 ML NEB SOLUTION NEB PRN (09:15)
[2021-05-16] MEDS ORDERED: FentaNYL 12 MCG/HOUR PATCH TD SCH (10:00)
[2021-05-16] MEDS ORDERED: ALBUMIN HUMAN 25%-12.5GM/50ML 50 ML IV SCH (10:00)
[2021-05-16] MEDS ORDERED: SODIUM CHLORIDE 0.9% 250 ML IV ONE (10:47)
[2021-05-16 12:00] VITALS: BP 93/41
[2021-05-16] MEDS: DEXMEDETOMIDINE HCL 400 MCG in SODIUM CHLORIDE 0.9% 96 ML IV PRN (12:20)
[2021-05-16] MEDS ORDERED: FUROSEMIDE 20 MG/2 ML VIAL IVP ONE (13:00)
[2021-05-16] MEDS ORDERED: MORPHINE SULFATE 2 MG/ML SYRINGE IVP PRN (14:00)
[2021-05-16 16:00] VITALS: BP 117/52
[2021-05-16] MEDS: MORPHINE SULFATE 100 MG/NS/PF 100 ML IV PRN (17:01)
[2021-05-16 20:00] VITALS: BP 108/36
[2021-05-17] VITALS: BP 94/31
[2021-05-17 04:00] VITALS: BP 142/74
[2021-05-17 08:00] VITALS: BP 110/51
[2021-05-17] MEDS: MORPHINE SULFATE 100 MG/NS/PF 100 ML IV PRN ×3 (11:25→19:42)
[2021-05-17 12:00] VITALS: BP 117/45
[2021-05-17 16:00] VITALS: BP 114/60
[2021-05-17 19:19] VITALS: BP 111/48
[2021-05-17] MEDS: LORazepam 2 MG/ML VIAL IVP PRN (19:39)
[2021-05-18] MEDS: MORPHINE SULFATE 100 MG/NS/PF 100 ML IV PRN ×2 (01:47→15:26)
[2021-05-18 03:46] VITALS: BP 91/44
[2021-05-18] MEDS ORDERED: SCOPOLAMINE HYDROBROMIDE 1 MG/72 HOUR PATCH TD SCH (12:00)
[2021-05-18 20:00] VITALS: BP 93/39
== END 2021-05-19 03:58 | DRG 870 ==
LOC: EMS 14:14 → EDBD 20:00 → ICU 20:00 → 6N 05-17 17:30
PROVIDERS: ADMIT Internal Medicine; ATTEND Internal Medicine
PROC: 5A1955Z Respiratory Ventilation, Greater than 96 Consecutive Hours (ICD-10-PCS; principal; 2021-05-02)
PROC: 0BH17EZ Insertion of Endotracheal Airway into Trachea, Via Natural or Artificial Opening (ICD-10-PCS; 2021-05-02)
PROC: 30233N1 Transfusion of Nonautologous Red Blood Cells into Peripheral Vein, Percutaneous Approach (ICD-10-PCS; 2021-05-03)
PROC: 30233R1 Transfusion of Nonautologous Platelets into Peripheral Vein, Percutaneous Approach (ICD-10-PCS; 2021-05-03)
PROC: 0DJ08ZZ Inspection of Upper Intestinal Tract, Via Natural or Artificial Opening Endoscopic (ICD-10-PCS; 2021-05-03)
PROC: 5A09357 Assistance with Respiratory Ventilation, Less than 24 Consecutive Hours, Continuous Positive Airway Pressure (ICD-10-PCS; 2021-05-10)
PROC: 5A09357 Assistance with Respiratory Ventilation, Less than 24 Consecutive Hours, Continuous Positive Airway Pressure (ICD-10-PCS; 2021-05-15)
PROC: 5A09357 Assistance with Respiratory Ventilation, Less than 24 Consecutive Hours, Continuous Positive Airway Pressure (ICD-10-PCS; 2021-05-16)
PROC: 5A1935Z Respiratory Ventilation, Less than 24 Consecutive Hours (ICD-10-PCS; 2021-05-16)
DX: A41.9 Sepsis, unspecified organism (principal); J96.00 Acute respiratory failure, unspecified whether with hypoxia or hypercapnia; J18.9 Pneumonia, unspecified organism; G93.41 Metabolic encephalopathy; E87.0 Hyperosmolality and hypernatremia; K76.6 Portal hypertension; N17.9 Acute kidney failure, unspecified; K92.2 Gastrointestinal hemorrhage, unspecified; F10.139 Alcohol abuse with withdrawal, unspecified; K72.90 Hepatic failure, unspecified without coma; D50.0 Iron deficiency anemia secondary to blood loss (chronic); E87.6 Hypokalemia; K70.30 Alcoholic cirrhosis of liver without ascites; Z20.822 Contact with and (suspected) exposure to COVID-19; E03.9 Hypothyroidism, unspecified; F14.10 Cocaine abuse, uncomplicated; L30.9 Dermatitis, unspecified; R04.0 Epistaxis; R65.20 Severe sepsis without septic shock; Y90.9 Presence of alcohol in blood, level not specified; Z85.05 Personal history of malignant neoplasm of liver; Z51.5 Encounter for palliative care; Z92.21 Personal history of antineoplastic chemotherapy
CPT/HCPCS: 36245; 36430; 36569; 36600; 51702; 70450; 71045; 71260; 72193; 74018; 74160; 76937; 80048; 80053; 80202; 81001; 81002; 82009; 82140; 82550; 82805; 83605; 83615; 83690; 83735; 83880; 84100; 84132; 84439; 84443; 85025; 85379; 85384; 85610; 85730; 86850; 86900; 86901; 87040; 87070; 87077; 87081; 87205; 87324; 87449; 93005; 93306; 94002; 94003; 94660; 94799; 99291; 99292; C9113; G0378; G0480; G0481; J0171; J0696; J1940; J2060; J2250; J2270; J2310; J2354; J2704; J3370; J3411; J3475; J3480; J3490; J7030; J7040; J7050; J7060; P9035; P9047; Q9967; 36415-L1; 36415-TC; J7613